=== PATIENT | female | born 1950 | race Caucasian/White ===

== ENCOUNTER 2018-06-18 08:16 | Day surgery (SDC) | payer MEDICARE ==
[~2018-06-18 08:16] MED LIST: Lactated Ringers 1,000 ML IV SCH; Sodium Chloride 0.9% 10 ML Syringe FLUSH PRN
[2018-06-18] MEDS ORDERED: Propofol 200 MG/20 ML SDV IV ONE (10:30)
--- NOTE | 2018-06-18 10:33 | PCM.HPR ---
H & P Addendum review - H & P Addendum Review Date of Original H & P: 06/10/18 Date Reviewed: 06/18/18 Time Reviewed: 10:00 Patient was Examined: No Changes
--- NOTE | 2018-06-18 11:11 | PCM.OPNOTE ---
- General Post-Op/Procedure Note Date of Surgery/Procedure: 06/18/18 Operative Procedure(s): Colonoscopy Findings: Diverticulosis Pre Op Diagnosis: Change in bowel habits Post-Op Diagnosis: Same Anesthesia Technique: MAC Primary Surgeon: Figueroa Viramontes Anesthesia Provider: Tran Mas Complications: None Condition: Good
--- NOTE | 2018-06-18 12:50 | OR ---
DATE OF OPERATION: 06/18/2018 SURGEON: Figueroa Viramontes MD PREOPERATIVE DIAGNOSIS: Change in bowel habits. POSTOPERATIVE DIAGNOSIS: Diverticulosis. PROCEDURE: Colonoscopy. ANESTHESIA: IV sedation. DESCRIPTION OF PROCEDURE: The patient was brought to the procedure room, where she was placed on her left side and IV sedation administered. Digital rectal exam was performed, which was normal. The colonoscope was inserted and advanced to the level of the cecum through a difficult tortuous colon. This required pressure on the abdomen and changing to supine position. Eventually, I was able to reach the cecum, which was confirmed by identifying the appendiceal lumen and ileocecal valve. Prep was good and surfaces were well visualized. Upon withdrawing the scope, the ascending, transverse and descending colons were very tortuous and a few diverticula seen. The sigmoid colon was very tortuous with multiple diverticula present. Rectum was normal and retroflexion was normal. Air was removed, and the scope withdrawn. The patient tolerated the procedure well and returned to Recovery in a stable condition. The patient will follow up with Deja Johnson for further evaluation. In the meantime, I will suggest that she try using MiraLAX daily. /[id number] OMID/CELESTINO
== END 2018-06-18 12:45 | disposition home or self-care (01) ==
LOC: FB.SDS 08:16
PROVIDERS: ATTEND Surgery
DX: K59.00 Constipation, unspecified (principal); K57.30 Diverticulosis of large intestine without perforation or abscess without bleeding; M81.0 Age-related osteoporosis without current pathological fracture; I10 Essential (primary) hypertension; J44.9 Chronic obstructive pulmonary disease, unspecified; K21.9 Gastro-esophageal reflux disease without esophagitis; G25.81 Restless legs syndrome; G43.709 Chronic migraine without aura, not intractable, without status migrainosus; Z88.1 Allergy status to other antibiotic agents; Z88.6 Allergy status to analgesic agent; Z88.8 Allergy status to other drugs, medicaments and biological substances; Z79.82 Long term (current) use of aspirin; Z79.899 Other long term (current) drug therapy
CPT/HCPCS: 00811; 45378; J2704; J7120

== ENCOUNTER 2020-04-20 22:15 | Emergency (ER) | payer MEDICARE ==
--- NOTE | 2020-04-20 22:48 | EDM.PDOC ---
ED HPI GENERAL MEDICAL PROBLEM - General Chief Complaint: Upper Extremity Injury/Pain Stated Complaint: LEFT THUMB AREA CUT AND WRIST Time Seen by Provider: 04/20/20 22:25 Source of Information: Reports: Patient History Limitations: Reports: No Limitations - History of Present Illness INITIAL COMMENTS - FREE TEXT/NARRATIVE: Patient presented to the ED because of left hand bruising and pain. The base of her left thumb got caught on the fan. Left Hand Pain Score (Numeric/FACES): 4 - Related Data Allergies Allergy/AdvReac Type Severity Reaction Status Date / Time metronidazole [From Flagyl] Allergy Mild UNKNOWN Verified 08/30/18 19:54 diclofenac AdvReac Mild UNKNOWN Verified 08/30/18 19:54 paroxetine HCl [From Paxil] AdvReac Mild HEADACHE, Verified 08/30/18 19:54 LETHARGY Home Meds: Home Meds Calcium Carb & Citrate/Vit D3 [Calcium + Vitamin D3 Caplet] 1 tab PO DAILY 06/08/14 [History] FLUoxetine [PROzac] 60 mg PO DAILY 06/08/14 [History] Lisinopril/Hydrochlorothiazide [Zestoretic 20-12.5 mg Tablet] 1 tab PO DAILY 06/08/14 [History] Aspirin [Halfprin] 81 mg PO DAILY 06/14/18 [History] Cholecalciferol (Vitamin D3) [Vitamin D3] 5,000 unit PO DAILY 06/14/18 [History] Denosumab [Xgeva] 60 mg IJ Q6M 06/14/18 [History] Omeprazole 20 mg PO DAILY 06/14/18 [History] Verapamil [Calan SR] 120 mg PO DAILY 06/14/18 [History] Vitamin B Complex 1 each PO DAILY 06/14/18 [History] buPROPion HCL [Wellbutrin Xl] 150 mg PO DAILY 06/14/18 [History] polyethylene glycoL 3350 [MiraLAX] 17 gm PO DAILY 08/30/18 [History] traMADol [Ultram] 100 mg PO Q4H PRN 08/30/18 [History] Past Medical History HEENT History: Reports: None Cardiovascular History: Reports: Hypertension, Other (See Below) Other Cardiovascular History: SUPRAVENTRICULAR PREMATURE BEATS, CHEST PRESSURE Respiratory History: Reports: COPD Gastrointestinal History: Reports: GERD 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: Reports: Other 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: Musculoskeletal History: Reports: Osteoporosis Neurological History: Reports: Headaches, Chronic, Other (See Below) Other Neuro History: PARESTHESIA OF HAND AND FEET Psychiatric History: Reports: Depression - Infectious Disease History Infectious Disease History: Reports: Chicken Pox, Measles, Mumps - Past Surgical History HEENT Surgical History: Reports: None Social & Family History - Family History Family Medical History: Noncontributory - Caffeine Use Caffeine Use: Reports: Coffee Review of Systems - Review of Systems Review Of Systems: See Below Constitutional: Reports: No Symptoms Ears: Reports: No Symptoms Nose: Reports: No Symptoms Mouth/Throat: Reports: No Symptoms Respiratory: Reports: No Symptoms Cardiovascular: Reports: No Symptoms Genitourinary: Reports: No Symptoms Musculoskeletal: Reports: No Symptoms Skin: Reports: Bruising ED EXAM, GENERAL - Physical Exam Exam: See Below Exam Limited By: No Limitations General Appearance: Alert, No Apparent Distress Eye Exam: Bilateral Eye: PERRL Ears: Normal External Exam Nose: Normal Inspection, Normal Mucosa, No Blood Throat/Mouth: Normal Inspection, Normal Lips, Normal Teeth Head: Atraumatic, Normocephalic Neck: Normal Inspection, Supple, Non-Tender, Full Range of Motion Respiratory/Chest: No Respiratory Distress, Lungs Clear, Normal Breath Sounds Cardiovascular: Normal Peripheral Pulses, Regular Rate, Rhythm, No Edema, No Gallop, No JVD, No Murmur GI/Abdominal: Normal Bowel Sounds, Soft, Non-Tender, No Organomegaly Back Exam: Normal Inspection, Full Range of Motion Extremities: Normal Inspection, Normal Range of Motion, Other (bruising and mild swelling base of left thum) Course - Vital Signs Text/Narrative:: ROXANA wrap applied by ED physician Last Recorded V/S: Last Vital Signs Temp 36.5 C 04/20/20 22:20 Pulse 73 04/20/20 22:20 Resp 16 04/20/20 22:20 BP 145/72 H 04/20/20 22:20 Pulse Ox 97 04/20/20 22:20 Departure - Departure Time of Disposition: 22:50 Disposition: Home, Self-Care 01 Condition: Good Clinical Impression: Contusion - Discharge Information Instructions: Contusion, [id number] Referrals: Deja Johnson NP [Primary Care Provider] - Forms: ED Department Discharge Additional Instructions: please read discharge instuctions on contusion apply ice you may take ibuprofen 600 mg with tylenol 500 mg every 4-6 hours as needed for pain follow up as needed Sepsis Event Note (ED) - Focused Exam Vital Signs: Vital Signs Temp Pulse Resp BP Pulse Ox 04/20/20 22:20 36.5 C 73 16 145/72 H 97
== END 2020-04-20 22:45 | disposition home or self-care (01) ==
LOC: FB.ED 22:15
DX: S60.222A Contusion of left hand, initial encounter (principal); I10 Essential (primary) hypertension; K21.9 Gastro-esophageal reflux disease without esophagitis; F32.9 Major depressive disorder, single episode, unspecified; Z88.8 Allergy status to other drugs, medicaments and biological substances; Z79.899 Other long term (current) drug therapy; Z79.82 Long term (current) use of aspirin; W23.0XXA Caught, crushed, jammed, or pinched between moving objects, initial encounter
CPT/HCPCS: 99282; 99283

== ENCOUNTER 2020-12-04 18:19 | Emergency (ER) | payer MEDICARE ==
[2020-12-04] MEDS ORDERED: Morphine 10 MG/ML SDV IM ONE (19:25)
[2020-12-04] MEDS ORDERED: hydrOXYzine HCl 50 MG/ML SDV IM ONE (19:25)
--- NOTE | 2020-12-04 20:28 | EDM.PDOC ---
ED HPI GENERAL MEDICAL PROBLEM - General Chief Complaint: Upper Extremity Injury/Pain Stated Complaint: FALL Time Seen by Provider: 12/04/20 20:25 Source of Information: Reports: Patient, Family History Limitations: Reports: No Limitations - History of Present Illness INITIAL COMMENTS - FREE TEXT/NARRATIVE: Lyn fell while trying to put up some pictures.She landed on her left elbow. Hit the head w/o LOC. She has a deformity of the left elbow. She is from [facility] No vomiting. left elbow Pain Score (Numeric/FACES): 10 - Related Data Allergies Allergy/AdvReac Type Severity Reaction Status Date / Time metronidazole [From Flagyl] Allergy Mild UNKNOWN Verified 12/04/20 19:22 diclofenac AdvReac Mild UNKNOWN Verified 12/04/20 19:22 paroxetine HCl [From Paxil] AdvReac Mild HEADACHE, Verified 12/04/20 19:22 LETHARGY Home Meds: Home Meds Calcium Carb & Citrate/Vit D3 [Calcium + Vitamin D3 Caplet] 1 tab PO DAILY 06/08/14 [History] FLUoxetine [PROzac] 60 mg PO DAILY 06/08/14 [History] Lisinopril/Hydrochlorothiazide [Zestoretic 20-12.5 mg Tablet] 1 tab PO DAILY [History] Aspirin [Halfprin] 81 mg PO DAILY 06/14/18 [History] Cholecalciferol (Vitamin D3) [Vitamin D3] 5,000 unit PO DAILY 06/14/18 [History] Denosumab [Xgeva] 60 mg IJ Q6M 06/14/18 [History] Omeprazole 20 mg PO DAILY 06/14/18 [History] Verapamil [Calan SR] 120 mg PO DAILY 06/14/18 [History] Vitamin B Complex 1 each PO DAILY 06/14/18 [History] buPROPion HCL [Wellbutrin Xl] 150 mg PO DAILY 06/14/18 [History] polyethylene glycoL 3350 [MiraLAX] 17 gm PO DAILY 08/30/18 [History] traMADol [Ultram] 100 mg PO Q4H PRN 08/30/18 [History] Past Medical History HEENT History: Reports: None Cardiovascular History: Reports: Hypertension, Other (See Below) Other Cardiovascular History: SUPRAVENTRICULAR PREMATURE BEATS, CHEST PRESSURE Respiratory History: Reports: COPD Gastrointestinal History: Reports: GERD 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: Musculoskeletal History: Reports: Osteoporosis Neurological History: Reports: Headaches, Chronic, Other (See Below) Other Neuro History: PARESTHESIA OF HAND AND FEET Psychiatric History: Reports: Depression - Infectious Disease History Infectious Disease History: Reports: Chicken Pox, Measles, Mumps - Past Surgical History HEENT Surgical History: Reports: None Other HEENT Surgeries/Procedures: bilat cataract GI Surgical History: Reports: Appendectomy, Cholecystectomy, Colonoscopy Social & Family History - Family History Family Medical History: No Pertinent Family History - Tobacco Use Tobacco Use Status *Q: Current Every Day Tobacco User Years of Tobacco use: 58 Packs/Tins Daily: 0.3 - Caffeine Use Caffeine Use: Reports: Coffee, Energy Drinks, Tea - Recreational Drug Use Recreational Drug Use: No Review of Systems - Review of Systems Review Of Systems: Comprehensive ROS is negative, except as noted in HPI. ED EXAM, GENERAL - Physical Exam Exam: See Below Exam Limited By: No Limitations General Appearance: Alert, WD/WN Ears: Normal External Exam Ear Exam: Bilateral Ear: Auricle Normal, Canal Normal, TM normal Nose: Normal Inspection Throat/Mouth: Normal Inspection Head: Atraumatic Respiratory/Chest: No Respiratory Distress Extremities: Other (Left elbow deformity,limited ROM and normal peripheral pulses) Course - Vital Signs Last Recorded V/S: Last Vital Signs Temp 97.4 F 12/04/20 18:20 Pulse 75 12/04/20 18:20 Resp 17 12/04/20 18:20 BP 139/111 H 12/04/20 18:20 Pulse Ox 99 12/04/20 18:20 - Orders/Labs/Meds Orders: Active Orders 24 hr Category Date Time Status Elbow 2V Lt [CR] Stat Exams 12/04/20 19:03 Taken Head wo Cont [CT] Stat Exams 12/04/20 20:35 Taken Meds: Medications Discontinued Medications Generic Name Dose Route Start Last Admin Trade Name Freq PRN Reason Stop Dose Admin Hydroxyzine HCl 50 mg 12/04/20 19:25 12/04/20 19:43 Vistaril IM 12/04/20 19:26 50 mg ONETIME ONE Administration Morphine Sulfate 10 mg 12/04/20 19:25 12/04/20 19:43 Morphine IM 12/04/20 19:26 10 mg ONETIME ONE Administration Departure - Departure Time of Disposition: 21:09 Disposition: DC/Tfer to Acute Hospital 02 Clinical Impression: Olecranon fracture - Discharge Information Referrals: Deja Johnson MEDICAL CHIEF TECHNICIAN [Primary Care Provider] - Forms: ED Department Discharge Sepsis Event Note (ED) - Evaluation Sepsis Screening Result: No Definite Risk - Focused Exam Vital Signs: Vital Signs Temp Pulse Resp BP Pulse Ox 12/04/20 18:20 97.4 F 75 17 139/111 H 99 - Problem List & Annotations (1) Olecranon fracture SNOMED Code(s): 392137436 Code(s): S52.023A - DISP FX OF OLECRAN PRO W/O INTARTIC EXTN UNSP ULNA, INIT Status: Acute Current Visit: Yes Qualifiers: Encounter type: initial encounter Fracture type: closed Laterality: left Qualified Code(s): S52.022A - Displaced fracture of olecranon process without intraarticular extension of left ulna, initial encounter for closed fracture - Problem List Review Problem List Initiated/Reviewed/Updated: Yes - My Orders Last 24 Hours: My Active Orders 12/04/20 20:35 Head wo Cont [CT] Stat - Assessment/Plan Last 24 Hours: My Active Orders 12/04/20 20:35 Head wo Cont [CT] Stat Plan: Morphine and Vistaril. Elbow sling. I spoke with Ortho at [facility]. Admit there tonight for ORIF tomorrow. Transferred by Ambulance
--- NOTE | 2020-12-06 11:39 | CR ---
INDICATION: Left arm injury. LEFT ELBOW: Frontal and lateral views of the left elbow revealed a transverse fracture through the olecranon process with separation of the fracture fragments along the posterior aspect of approximately 24 mm. Joint effusion is noted. Overlying soft tissue swelling is noted. Bone density appeared to be normal. IMPRESSION: Ulnar fracture through the olecranon process with severe separation of fracture fragments. MTDD
== END 2020-12-04 21:38 ==
LOC: FB.ED 18:19
DX: S52.022A Displaced fracture of olecranon process without intraarticular extension of left ulna, initial encounter for closed fracture (principal); I10 Essential (primary) hypertension; J44.9 Chronic obstructive pulmonary disease, unspecified; K21.9 Gastro-esophageal reflux disease without esophagitis; Z72.0 Tobacco use; Z88.8 Allergy status to other drugs, medicaments and biological substances; Z79.82 Long term (current) use of aspirin; Z79.899 Other long term (current) drug therapy; W18.30XA Fall on same level, unspecified, initial encounter
CPT/HCPCS: 70450; 73070-LT; 96372; 99284; 99284-25; J2270; J3410

== ENCOUNTER 2021-01-02 18:42 | Observation (INO) | payer MEDICARE ==
[2021-01-02] MEDS ORDERED: Sodium Chloride 0.9% 10 ML Syringe FLUSH PRN (18:54)
[2021-01-02] MEDS ORDERED: Acetaminophen 500 MG Tab PO ONE (19:45)
[2021-01-02] MEDS ORDERED: Sodium Chloride 0.9% 500 ML IV ONE (19:45)
[2021-01-02] MEDS: Sodium Chloride 0.9% 1,000 ML IV SCH (20:27)
--- NOTE | 2021-01-02 20:31 | EDM.PDOC ---
ED HPI GENERAL MEDICAL PROBLEM - General Chief Complaint: Fever Stated Complaint: SOB Time Seen by Provider: 01/02/21 19:15 Source of Information: Reports: Patient, Family (Patient's daughter) History Limitations: Reports: No Limitations - History of Present Illness INITIAL COMMENTS - FREE TEXT/NARRATIVE: 70-year-old female who presents to the emergency department via private vehicle by her daughter secondary to reports of shortness of breath which began at about 9:30 to 10 AM today. She tells me that she felt well yesterday until last night when she had some malaise but she really did not have any pain of breath at that time. She also did not notice any fever but only reports that she felt "bad all over". She reports that she was coming back in from smoking a cigarette at about 9:30 to 10 AM today when she felt the shortness of breath. She reports that she also felt like her heart was beating fast and she felt bad all over at that time as well. The symptoms have persisted through the day. The personnel at [facility] did check the patient and she had a somewhat fast heart rate but seemed to be doing okay otherwise. She also has been eating and drinking normally although she tells me that she feels rather thirsty right now. She has some generalized weakness and shortness of breath and malaise has persisted all through the day and seemed to worsen. Upon arrival here she was noted to have a fever of 102F. Her O2 saturations were 92% on room air and she did seem to be somewhat dyspneic. The patient does report that she has had a cough for the past few days but it has been nonproductive. She also reports she has a headache now which is a global headache and it is pounding and throbbing and she rates that pain as an 8/10. She does not have pain elsewhere. She has had no nausea or vomiting. She has had no dysuria or hematuria. She is approximately one month status post ORIF of her left elbow. That area is doing well and she is out of her brace and the incision site is without any erythema or swelling. There are no other associated signs or symptoms. There are no other modifying factors. Onset: Other (Yesterday evening) Duration: Getting Worse Location: Reports: Head, Generalized Quality: Reports: Ache Severity: Moderate Improves with: Reports: None Worsens with: Reports: Other (Activity makes her shortness of breath worse.) Context: Reports: Other Associated Symptoms: Reports: Cough, Shortness of Breath, Weakness Treatments PHYSICAL BIOCHEMIST: Reports: Acetaminophen (Last dose was this previous morning.) - Related Data Allergies Allergy/AdvReac Type Severity Reaction Status Date / Time metronidazole [From Flagyl] Allergy Mild UNKNOWN Verified 01/02/21 18:54 diclofenac AdvReac Mild UNKNOWN Verified 01/02/21 18:54 paroxetine HCl [From Paxil] AdvReac Mild HEADACHE, Verified 01/02/21 18:54 LETHARGY Home Meds: Home Meds Aspirin [Halfprin] 81 mg PO DAILY 06/14/18 [History] Cholecalciferol (Vitamin D3) [Vitamin D3] 5,000 unit PO DAILY 06/14/18 [History] Omeprazole 20 mg PO DAILY 06/14/18 [History] Verapamil [Calan SR] 120 mg PO DAILY 06/14/18 [History] Calcium Carb/Vit D3/Minerals [Calcium 600+D Plus Minerals] 1 each PO DAILY 01/02/21 [History] Docusate Sodium [Colace] 100 mg PO DAILY 01/02/21 [History] Ferrous Sulfate 325 mg PO DAILY 01/02/21 [History] Mecobalamin [B12 Active] 1,000 mcg PO DAILY 01/02/21 [History] Mirtazapine [Remeron] 30 mg PO BEDTIME 01/02/21 [History] OLANZapine [Zyprexa] 5 mg PO DAILY 01/02/21 [History] Vit E/Zn/Lut/Lyco/Bilber/Hb261 [Lipotriad Vision Support Plus] 1 each PO DAILY 01/02/21 [History] lisinopriL [Lisinopril] 5 mg PO DAILY 01/02/21 [History] Past Medical History Cardiovascular History: Reports: Hypertension Respiratory History: Reports: COPD Gastrointestinal History: Reports: GERD 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 She apparently did have some sundowning with her last admission one month ago at [facility] Depression - Infectious Disease History Infectious Disease History: Reports: Chicken Pox, Measles, Mumps - Past Surgical History Other HEENT Surgeries/Procedures: bilat cataract GI Surgical History: Reports: Appendectomy, Cholecystectomy, Colonoscopy Female Surgical History: Reports: Hysterectomy, Tubal Ligation Musculoskeletal Surgical History: Reports: ORIF (Of left olecranon), Shoulder Surgery (Right shoulder surgery) Social & Family History - Tobacco Use Tobacco Use Status *Q: Current Every Day Tobacco User Years of Tobacco use: 40 Packs/Tins Daily: 0.2 - Caffeine Use Caffeine Use: Reports: Coffee - Alcohol Use Alcohol Use History: No - Recreational Drug Use Recreational Drug Use: No - Living Situation & Occupation Living situation: Reports: Extended Care Facility (Lives at [facility]) Occupation: Retired Social History Comment: I did discuss with the patient her CODE STATUS and she has informed me that she wishes to be a DNR DNI. ED ROS GENERAL - Review of Systems Review Of Systems: See Below Constitutional: Reports: Malaise, Weakness, Fatigue HEENT: Reports: No Symptoms, Other (No loss of taste or smell.) Respiratory: Reports: Shortness of Breath, Cough. Denies: Sputum Cardiovascular: Reports: Palpitations GI/Abdominal: Reports: No Symptoms : Reports: No Symptoms Musculoskeletal: Reports: No Symptoms Skin: Reports: No Symptoms Neurological: Reports: Headache, Weakness Psychiatric: Reports: No Symptoms Hematologic/Lymphatic: Reports: No Symptoms Immunologic: Reports: No Symptoms ED EXAM, GENERAL - Physical Exam Exam: See Below Exam Limited By: No Limitations General Appearance: Alert, WD/WN, Mild Distress Eye Exam: Bilateral Eye: EOMI, Normal Inspection Ears: Normal External Exam, Hearing Grossly Normal Ear Exam: Bilateral Ear: Auricle Normal Nose: Normal Inspection, Normal Mucosa, No Blood Throat/Mouth: Normal Voice, No Airway Compromise, Other (Dry mouth.) Head: Atraumatic, Normocephalic Neck: Normal Inspection, Supple, Non-Tender, Full Range of Motion Respiratory/Chest: No Respiratory Distress, No Accessory Muscle Use, Chest Non- Tender, Rales (In right base), Wheezing (Scattered bilaterally) Cardiovascular: Normal Peripheral Pulses, Regular Rate, Rhythm, No Murmur Peripheral Pulses: 2+: Radial (L), Radial (R), Dorsalis Pedis (L), Dorsalis Pedis (R) GI/Abdominal: Normal Bowel Sounds, Soft, Non-Tender, No Mass Back Exam: Normal Inspection, Full Range of Motion Extremities: Normal Inspection, Normal Range of Motion, Non-Tender, No Pedal Edema, Normal Capillary Refill, Other (Operative site an incision on her left elbow looks good without any erythema or swelling.) Neurological: Alert, Oriented, CN II-XII Intact, Normal Cognition, No Motor/Sensory Deficits Skin Exam: Warm, Dry, Intact, Normal Color, No Rash #1 Interpretation EKG Date: 01/02/21 Time: 19:44 Rhythm: NSR Rate (Beats/Min): 92 [place]: Normal P-Wave: Present QRS: Normal ST-T: Normal QT: Normal Comparison: NA - No Prior EKG EKG Interpretation Comments: This is a normal EKG. Course - Vital Signs Last Recorded V/S: Last Vital Signs Temp 36.8 C 01/02/21 21:33 Pulse 88 01/02/21 21:33 Resp 16 01/02/21 21:33 BP 161/89 H 01/02/21 21:33 Pulse Ox 95 01/02/21 21:33 - Orders/Labs/Meds Orders: Active Orders 24 hr Category Date Time Status Admission Status [Patient Status] [ADT] Routine ADT 01/02/21 22:32 Ordered EKG Documentation Completion [RC] ASDIRECTED Care 01/02/21 18:56 Active Ang Chest [CT] Stat Exams 01/02/21 20:25 Taken Chest 1V Frontal [CR] Stat Exams 01/02/21 18:54 Stop Req CULTURE BLOOD [BC] Urgent Lab 01/02/21 19:08 Received CULTURE BLOOD [BC] Urgent Lab 01/02/21 19:15 Received Sodium Chloride 0.9% [Normal Saline] 1,000 ml Med 01/02/21 19:45 Active IV ASDIRECTED Sodium Chloride 0.9% [Saline Flush] Med 01/02/21 18:54 Active 10 ml FLUSH ASDIRECTED PRN Blood Culture x2 Reflex Set [OM.PC] Urgent Oth 01/02/21 18:54 Ordered Peripheral IV Insertion Adult [OM.PC] Routine Oth 01/02/21 18:54 Ordered EKG 12 Lead [EK] Routine Ther 01/02/21 18:54 Ordered Medication Orders Sodium Chloride (Normal Saline) 1,000 mls @ 100 mls/hr IV ASDIRECTED [facility] Last Admin: 01/02/21 20:27 Dose: 100 mls/hr Documented by: SKY Sodium Chloride (Sodium Chloride 0.9% 10 Ml Syringe) 10 ml FLUSH ASDIRECTED PRN PRN Reason: Keep Vein Open Last Admin: 01/02/21 19:50 Dose: 10 ml Documented by: SKY Labs: Laboratory Tests 01/02/21 01/02/21 01/02/21 Range/Units 19:08 19:08 19:08 WBC 12.2 H (3.0-10.3) x10-3/uL RBC 3.34 L (3.60-5.20) x10(6)uL Hgb 10.6 L (11.4-15.5) g/dL Hct 32.9 L (34.2-48.2) % MCV 98.6 (76.7-100.5) fL MCH 31.8 (23.9-33.9) pg MCHC 32.3 (31.9-34.8) g/dL RDW 14.1 (12.3-16.5) % Plt Count 334 (151-488) x10(3)uL MPV 7.4 (7.1-12.4) fL Neut % (Auto) 64.4 (30.8-76.2) % Lymph % (Auto) 10.6 L (18.4-52.1) % [place] % (Auto) 12.8 (4.4-15.7) % Eos % (Auto) 11.4 H (0.6-8.1) % Baso % (Auto) 0.8 (0.2-1.5) % Neut # (Auto) 7.9 H (1.5-6.3) x10-3/uL Lymph # (Auto) 1.3 (1.0-4.4) x10-3/uL [place] # (Auto) 1.6 H (0.3-1.0) x10-3/uL Eos # (Auto) 1.4 H (0.0-0.8) x10-3/uL Baso # (Auto) 0.1 (0.0-0.1) x10-3/uL D-Dimer, Quantitative (0.0-0.59) mg/LFEU Sodium 140 (135-145) mmol/L Potassium 4.1 (3.5-5.3) mmol/L Chloride 103 (100-110) mmol/L Carbon Dioxide 28 (21-32) mmol/L BUN 16 (7-18) mg/dL Creatinine 0.9 (0.55-1.02) mg/dL Est Cr Clr Drug Dosing 47.21 mL/min Estimated GFR (MDRD) > 60 (>60) BUN/Creatinine Ratio 17.8 (9-20) Glucose 112 (80-116) mg/dL Lactic Acid (0.4-2.0) mmol/L Calcium 8.5 L (8.6-10.2) mg/dL Magnesium 2.0 (1.8-2.5) mg/dL Total Bilirubin 0.3 (0.1-1.3) mg/dL AST 19 (5-25) IU/L ALT 21 (12-36) U/L Alkaline Phosphatase 115 H (56-112) IU/L Troponin I 5.7 (4.0-60.3) pg/mL C-Reactive Protein 7.1 H* (0.5-0.9) mg/dL NT-Pro-B Natriuret Pep 264 H (<=125) pg/mL Total Protein 6.4 (6.0-8.0) g/dL Albumin 3.0 L (3.2-4.6) g/dL Globulin 3.4 g/dL Albumin/Globulin Ratio 0.9 Urine Color (YELLOW) Urine Appearance (CLEAR) Urine pH (5.0-6.5) Ur Specific [place] (1.010-1.025) Urine Protein (NEGATIVE) mg/dL Urine Glucose (UA) (NORMAL) mg/dL Urine Ketones (NEGATIVE) mg/dL Urine Occult Blood (NEGATIVE) Urine Nitrite (NEGATIVE) Urine Bilirubin (NEGATIVE) Urine Urobilinogen (NEGATIVE) mg/dL Ur Leukocyte Esterase (NEGATIVE) Urine RBC (0-5) Urine WBC (0-5) Ur Squamous Epith Cells (NS,R,O) Urine Bacteria (NS) SARS-CoV-2 RNA (TRISHA) (NEGATIVE) 01/02/21 01/02/21 01/02/21 Range/Units 19:08 19:08 19:50 WBC (3.0-10.3) x10-3/uL RBC (3.60-5.20) x10(6)uL Hgb (11.4-15.5) g/dL Hct (34.2-48.2) % MCV (76.7-100.5) fL MCH (23.9-33.9) pg MCHC (31.9-34.8) g/dL RDW (12.3-16.5) % Plt Count (151-488) x10(3)uL MPV (7.1-12.4) fL Neut % (Auto) (30.8-76.2) % Lymph % (Auto) (18.4-52.1) % [place] % (Auto) (4.4-15.7) % Eos % (Auto) (0.6-8.1) % Baso % (Auto) (0.2-1.5) % Neut # (Auto) (1.5-6.3) x10-3/uL Lymph # (Auto) (1.0-4.4) x10-3/uL [place] # (Auto) (0.3-1.0) x10-3/uL Eos # (Auto) (0.0-0.8) x10-3/uL Baso # (Auto) (0.0-0.1) x10-3/uL D-Dimer, Quantitative 2.46 H (0.0-0.59) mg/LFEU Sodium (135-145) mmol/L Potassium (3.5-5.3) mmol/L Chloride (100-110) mmol/L Carbon Dioxide (21-32) mmol/L BUN (7-18) mg/dL Creatinine (0.55-1.02) mg/dL Est Cr Clr Drug Dosing mL/min Estimated GFR (MDRD) (>60) BUN/Creatinine Ratio (9-20) Glucose (80-116) mg/dL Lactic Acid 1.0 (0.4-2.0) mmol/L Calcium (8.6-10.2) mg/dL Magnesium (1.8-2.5) mg/dL Total Bilirubin (0.1-1.3) mg/dL AST (5-25) IU/L ALT (12-36) U/L Alkaline Phosphatase (56-112) IU/L Troponin I (4.0-60.3) pg/mL C-Reactive Protein (0.5-0.9) mg/dL NT-Pro-B Natriuret Pep (<=125) pg/mL Total Protein (6.0-8.0) g/dL Albumin (3.2-4.6) g/dL Globulin g/dL Albumin/Globulin Ratio Urine Color Yellow (YELLOW) Urine Appearance Slightly cloudy (CLEAR) Urine pH 7.0 H (5.0-6.5) Ur Specific [place] 1.010 (1.010-1.025) Urine Protein Negative (NEGATIVE) mg/dL Urine Glucose (UA) Normal (NORMAL) mg/dL Urine Ketones Negative (NEGATIVE) mg/dL Urine Occult Blood Negative (NEGATIVE) Urine Nitrite Negative (NEGATIVE) Urine Bilirubin Negative (NEGATIVE) Urine Urobilinogen Normal (NEGATIVE) mg/dL Ur Leukocyte Esterase Small H (NEGATIVE) Urine RBC 0-5 (0-5) Urine WBC 5-10 H (0-5) Ur Squamous Epith Cells Moderate H (NS,R,O) Urine Bacteria Few H (NS) SARS-CoV-2 RNA (TRISHA) (NEGATIVE) 01/02/21 Range/Units 19:55 WBC (3.0-10.3) x10-3/uL RBC (3.60-5.20) x10(6)uL Hgb (11.4-15.5) g/dL Hct (34.2-48.2) % MCV (76.7-100.5) fL MCH (23.9-33.9) pg MCHC (31.9-34.8) g/dL RDW (12.3-16.5) % Plt Count (151-488) x10(3)uL MPV (7.1-12.4) fL Neut % (Auto) (30.8-76.2) % Lymph % (Auto) (18.4-52.1) % [place] % (Auto) (4.4-15.7) % Eos % (Auto) (0.6-8.1) % Baso % (Auto) (0.2-1.5) % Neut # (Auto) (1.5-6.3) x10-3/uL Lymph # (Auto) (1.0-4.4) x10-3/uL [place] # (Auto) (0.3-1.0) x10-3/uL Eos # (Auto) (0.0-0.8) x10-3/uL Baso # (Auto) (0.0-0.1) x10-3/uL D-Dimer, Quantitative (0.0-0.59) mg/LFEU Sodium (135-145) mmol/L Potassium (3.5-5.3) mmol/L Chloride (100-110) mmol/L Carbon Dioxide (21-32) mmol/L BUN (7-18) mg/dL Creatinine (0.55-1.02) mg/dL Est Cr Clr Drug Dosing mL/min Estimated GFR (MDRD) (>60) BUN/Creatinine Ratio (9-20) Glucose (80-116) mg/dL Lactic Acid (0.4-2.0) mmol/L Calcium (8.6-10.2) mg/dL Magnesium (1.8-2.5) mg/dL Total Bilirubin (0.1-1.3) mg/dL AST (5-25) IU/L ALT (12-36) U/L Alkaline Phosphatase (56-112) IU/L Troponin I (4.0-60.3) pg/mL C-Reactive Protein (0.5-0.9) mg/dL NT-Pro-B Natriuret Pep (<=125) pg/mL Total Protein (6.0-8.0) g/dL Albumin (3.2-4.6) g/dL Globulin g/dL Albumin/Globulin Ratio Urine Color (YELLOW) Urine Appearance (CLEAR) Urine pH (5.0-6.5) Ur Specific [place] (1.010-1.025) Urine Protein (NEGATIVE) mg/dL Urine Glucose (UA) (NORMAL) mg/dL Urine Ketones (NEGATIVE) mg/dL Urine Occult Blood (NEGATIVE) Urine Nitrite (NEGATIVE) Urine Bilirubin (NEGATIVE) Urine Urobilinogen (NEGATIVE) mg/dL Ur Leukocyte Esterase (NEGATIVE) Urine RBC (0-5) Urine WBC (0-5) Ur Squamous Epith Cells (NS,R,O) Urine Bacteria (NS) SARS-CoV-2 RNA (TRISHA) Negative (NEGATIVE) Meds: Medications Generic Name Dose Route Start Last Admin Trade Name Freq PRN Reason Stop Dose Admin Sodium Chloride 1,000 mls @ 100 mls/hr 01/02/21 19:45 01/02/21 20:27 Normal Saline IV 100 mls/hr ASDIRECTED OTILIA Administration Sodium Chloride 10 ml 01/02/21 18:54 01/02/21 19:50 Sodium Chloride 0.9% 10 Ml Syringe FLUSH 10 ml ASDIRECTED PRN Administration Keep Vein Open Discontinued Medications Generic Name Dose Route Start Last Admin Trade Name Arnavq PRN Reason Stop Dose Admin Acetaminophen 1,000 mg 01/02/21 19:45 01/02/21 19:51 Acetaminophen 500 Mg Tab PO 01/02/21 19:46 1,000 mg ONETIME ONE Administration Sodium Chloride 500 mls @ 999 mls/hr 01/02/21 19:45 01/02/21 19:51 Normal Saline IV 01/02/21 20:15 999 mls/hr .BOLUS ONE Administration Iopamidol 75 ml 01/02/21 20:59 01/02/21 21:19 Iopamidol 755 Mg/Ml 75 Ml Bottle IV 01/02/21 21:00 75 ml ONETIME ONE Administration - Radiology Interpretation Free Text/Narrative:: CTA of the chest showed no evidence of pulmonary emboli. There was centrilobular emphysema with bronchial wall thickening suggesting bronchitis. There was a 2 mm right upper lobe pulmonary nodule that will require follow-up chest CT in 12 months. This was per the [facility] radiologist. - Re-Assessments/Exams Free Text/Narrative Re-Assessment/Exam: 01/02/21 20:15: Patient remains awake and alert. She remains hemodynamically and respiratory stable. Her d-dimer was 2.54. I am awaiting her rapid COVID test. I had initially ordered a portable chest x-ray but I will cancel that and plan on doing a CTA of her chest because she will need to be evaluated for possible PE. The patient is receiving normal saline 500 mL a bolus. 01/02/21 21:00: The rapid COVID is negative. The patient will now be going over for the CTA of her chest. She has remained hemodynamically and neurologically stable. 01/02/21 22:15: The CT of the patient's chest showed no evidence of PE. There was no definite pneumonia but there was COPD with bronchial wall thickening representing a probable infectious process. The patient has remained hemodynamically and neurologically stable. Her fever has defervesced. She still feels short of breath with activity. She still has some scattered rhonchi/wheezing and rales in her right base. I think the patient would be best served from being admitted with IV antibiotics, DuoNeb treatments and Solu- Medrol IV. At this point, I am unsure if the patient will require a greater then 2 midnight hospital stay. I will therefore place the patient on observation status pending review by Dr. Lopez when she since care the patient at 7 AM on 01/03/2021. Discussed this with the patient and with her daughter and they are in agreement with this plan. Departure - Departure Time of Disposition: 22:35 Disposition: Refer to Observation Condition: Fair (Stable) Clinical Impression: COPD with acute exacerbation, Respiratory distress, Febrile illness, acute UTI (urinary tract infection) Qualifiers: Urinary tract infection type: site unspecified Hematuria presence: without hematuria Qualified Code(s): N39.0 - Urinary tract infection, site not specified - Discharge Information Referrals: PCP,None [Primary Care Provider] - Forms: ED Department Discharge Sepsis Event Note (ED) - Evaluation Sepsis Screening Result: Possible Sepsis Risk - Focused Exam Vital Signs: Vital Signs Temp Pulse Resp BP Pulse Ox 01/02/21 21:33 36.8 C 88 16 161/89 H 95 01/02/21 20:10 92 16 170/91 H 95 01/02/21 19:30 96 16 149/89 H 96 01/02/21 19:15 95 20 162/90 H 96 01/02/21 18:50 39.1 C H 95 18 164/94 H 92 L - My Orders Last 24 Hours: My Active Orders 01/02/21 18:54 Chest 1V Frontal [CR] Stat Sodium Chloride 0.9% [Saline Flush] 10 ml FLUSH ASDIRECTED PRN Blood Culture x2 Reflex Set [OM.PC] Urgent Peripheral IV Insertion Adult [OM.PC] Routine EKG 12 Lead [EK] Routine 01/02/21 18:56 EKG Documentation Completion [RC] ASDIRECTED 01/02/21 19:08 CULTURE BLOOD [BC] Urgent 01/02/21 19:15 CULTURE BLOOD [BC] Urgent 01/02/21 19:45 Sodium Chloride 0.9% [Normal Saline] 1,000 ml IV ASDIRECTED 01/02/21 20:25 Ang Chest [CT] Stat 01/02/21 22:32 Admission Status [Patient Status] [ADT] Routine - Assessment/Plan Last 24 Hours: My Active Orders 01/02/21 18:54 Chest 1V Frontal [CR] Stat Sodium Chloride 0.9% [Saline Flush] 10 ml FLUSH ASDIRECTED PRN Blood Culture x2 Reflex Set [OM.PC] Urgent Peripheral IV Insertion Adult [OM.PC] Routine EKG 12 Lead [EK] Routine 01/02/21 18:56 EKG Documentation Completion [RC] ASDIRECTED 01/02/21 19:08 CULTURE BLOOD [BC] Urgent 01/02/21 19:15 CULTURE BLOOD [BC] Urgent 01/02/21 19:45 Sodium Chloride 0.9% [Normal Saline] 1,000 ml IV ASDIRECTED 01/02/21 20:25 Ang Chest [CT] Stat 01/02/21 22:32 Admission Status [Patient Status] [ADT] Routine
[2021-01-02] MEDS ORDERED: Iopamidol 755 Mg/ML 75 ML Bottle IV ONE (20:59)
[2021-01-02] MEDS ORDERED: Ondansetron 4 MG/2 ML SDV IV PRN (22:36)
[2021-01-02] MEDS ORDERED: Ondansetron 4 MG Tab.DIS PO PRN (22:36)
[2021-01-02] MEDS ORDERED: Nicotine 14 MG/24 Hr Patch TRDERM SCH (22:45)
[2021-01-02] MEDS ORDERED: Azithromycin 500 MG in Sodium Chloride 0.9% 250 ML IV SCH (22:45)
[2021-01-02] MEDS ORDERED: cefTRIAXone 1 GM Vial IVPUSH SCH (22:45)
[2021-01-02] MEDS ORDERED: Enoxaparin 40 MG/0.4 ML Syringe SUBCUT SCH (22:45)
[2021-01-02] MEDS: Albuterol/Ipratropium 3.0-0.5 MG/3 ML Neb Soln NEB SCH (22:59)
[2021-01-02] MEDS ORDERED: Albuterol/Ipratropium 3.0-0.5 MG/3 ML Neb Soln NEB ONE (23:09)
[2021-01-02] MEDS: Pantoprazole 40 MG Vial IVPUSH SCH (23:37)
[2021-01-02] MEDS: methylPREDNISolone Sodium Succinate 40 MG/1 ML SDV IVPUSH SCH (23:38)
[2021-01-03] MEDS: Acetaminophen 325 MG Tab PO PRN ×3 (00:01→11:12)
[2021-01-03] MEDS: Albuterol/Ipratropium 3.0-0.5 MG/3 ML Neb Soln NEB SCH ×2 (06:01→10:52)
[2021-01-03] MEDS: methylPREDNISolone Sodium Succinate 40 MG/1 ML SDV IVPUSH SCH (06:01)
[2021-01-03] MEDS: Sodium Chloride 0.9% 1,000 ML IV SCH (06:59)
[2021-01-03] MEDS: Pantoprazole 40 MG Vial IVPUSH SCH (09:01)
[2021-01-03] MEDS ORDERED: Verapamil 120 MG Tab.ER *PTOM PO SCH (10:30)
[2021-01-03] MEDS ORDERED: Trolamine Salicylate/Aloe Vera 10% Crm 85 GM Tube TOP PRN (11:37)
--- NOTE | 2021-01-03 11:59 | PCM.HP.2 ---
H&P History of Present Illness - General Date of Service: 01/03/21 Admit Problem/Dx: COPD exacerbation/acute bronchitis Source of Information: Patient, EMS Notes Reviewed - History of Present Illness Initial Comments - Free Text/Narative: Lyn developed shortness of breath, malaise, dry cough and weakness yesterday morning, presented to ER later yesterday, found to have temp 102F, malaise, headache. She had tachycardia, stated that she was drinking and eating normally. She had oxygen saturation of 92% on presentation. No dysuria, frequency or hematuria. Does have some urgency. No rash. She has history of COPD per her d aughter but has not been on any inhalers for it. Lyn reports she thinks she had PFTs in the distant past and that her primary provider, Deja Johnson NP had discussed repeating them when she fractured her elbow last month, everything had been put on hold. She is not on oxygen at home. She just got out of her elbow brace within the past week. State her left shoulder is bothering her and asked for some topical pain cream for it. In ER had elevated D dimer 2.46. On CTA,found to have bronchial wall thickening, negative for pulmonary embolism(PE). WBC was 12.2, BNP 264, Alkaline phosphatase was 115. Troponin normal. EKG normal. CRP 7.1. She does have right upper lobe nodule, advised to repeat CT in 12 months to follow nodule. WBC today was 8.1. Covid was negative. UA showed small leukocyte esterase, 5-10 wbc, moderate epithelials, few bacteria: most likely contamination or dehydration. Urine culture pending, no symptoms. 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 She does have history of Dementia, on Memantine 5 mg bid. She lives at [facility] Headache Pain Score (Numeric/FACES): 5 - Related Data Allergies/Adverse Reactions: Allergies Allergy/AdvReac Type Severity Reaction Status Date / Time metronidazole [From Flagyl] Allergy Mild UNKNOWN Verified 01/02/21 18:54 diclofenac AdvReac Mild UNKNOWN Verified 01/02/21 18:54 paroxetine HCl [From Paxil] AdvReac Mild HEADACHE, Verified 01/02/21 18:54 LETHARGY Home Medications: Home Meds Aspirin [Halfprin] 81 mg PO DAILY 06/14/18 [History] Cholecalciferol (Vitamin D3) [Vitamin D3] 5,000 unit PO DAILY 06/14/18 [History] Omeprazole 20 mg PO Q72H 06/14/18 [History] Verapamil [Calan SR] 120 mg PO DAILY 06/14/18 [History] Calcium Carb/Vit D3/Minerals [Calcium 600+D Plus Minerals] 1 each PO DAILY 01/02/21 [History] Docusate Sodium [Colace] 200 mg PO DAILY 01/02/21 [History] Mirtazapine [Remeron] 30 mg PO BEDTIME 01/02/21 [History] OLANZapine [Zyprexa] 5 mg PO BEDTIME 01/02/21 [History] lisinopriL [Lisinopril] 5 mg PO DAILY 01/02/21 [History] Acetaminophen 650 mg PO Q4H PRN 01/03/21 [History] Cyanocobalamin (Vitamin B-12) [Vitamin B-12] 1,000 mcg PO DAILY 01/03/21 [History] Cyclobenzaprine [Flexeril] 5 mg PO Q8H PRN 01/03/21 [History] Ferrous Sulfate 325 mg PO BID 01/03/21 [History] Memantine [Namenda] 5 mg PO BID 01/03/21 [History] Vitamin E 400 unit PO DAILY 01/03/21 [History] traMADol [Ultram] 25 mg PO Q6H PRN 01/03/21 [History] Past Medical History HEENT History: Reports: None Cardiovascular History: Reports: Hypertension Other Cardiovascular History: SUPRAVENTRICULAR PREMATURE BEATS, CHEST PRESSURE Respiratory History: Reports: COPD Gastrointestinal History: Reports: GERD 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: Other OB/BYN History: Musculoskeletal History: Reports: Osteoporosis Neurological History: Reports: Headaches, Chronic, Other (See Below) Other Neuro History: PARESTHESIA OF HAND AND FEET Psychiatric History: Reports: Anxiety, Dementia, Depression - Infectious Disease History Infectious Disease History: Reports: Chicken Pox, Measles, Mumps - Past Surgical History HEENT Surgical History: Reports: None Other HEENT Surgeries/Procedures: bilat cataract GI Surgical History: Reports: Appendectomy, Cholecystectomy, Colonoscopy Female Surgical History: Reports: Hysterectomy, Tubal Ligation Musculoskeletal Surgical History: Reports: ORIF, Shoulder Surgery Social & Family History - Family History Family Medical History: No Pertinent Family History - Tobacco Use Tobacco Use Status *Q: Current Every Day Tobacco User Years of Tobacco use: 40 Packs/Tins Daily: 0.2 - Caffeine Use Caffeine Use: Reports: Coffee - Recreational Drug Use Recreational Drug Use: No - Living Situation & Occupation Living situation: Reports: Extended Care Facility (Lives at [facility]) Occupation: Retired H&P Review of Systems - Review of Systems: Review Of Systems: See Below General: Reports: Fever, Malaise, Weakness. Denies: Decreased Appetite HEENT: Reports: No Symptoms Pulmonary: Reports: Shortness of Breath, Cough Cardiovascular: Reports: No Symptoms Gastrointestinal: Reports: No Symptoms Genitourinary: Reports: Urgency. Denies: Dysuria, Frequency, Hematuria Musculoskeletal: Reports: Shoulder Pain (left), Joint Pain (left elbow) Skin: Reports: No Symptoms Psychiatric: Reports: No Symptoms Neurological: Reports: Confusion (history of dementia) Exam - Exam Exam: See Below - Vital Signs Vital Signs: Last Vital Signs Temp 97.5 F 01/03/21 07:30 Pulse 92 01/03/21 11:05 Resp 20 01/03/21 07:30 BP 112/93 H 01/03/21 10:49 Pulse Ox 94 L 01/03/21 07:30 Weight: 111 lb 2 oz - Exam General: Alert, Oriented (person, place), Cooperative. No: Mild Distress HEENT: PERRLA, Conjunctiva Clear, EOMI, Hearing Intact, Mucosa Moist & [place], Nares Patent Neck: Supple, Trachea Midline. No: Lymphadenopathy Lungs: Clear to Auscultation, Normal Respiratory Effort, Decreased Breath Sounds (bibasilar), Wheezing (rare). No: Crackles Cardiovascular: Regular Rate, Regular Rhythm GI/Abdominal Exam: Normal Bowel Sounds, Soft, Non-Tender, No Distention (Female) Exam: Deferred Rectal (Female) Exam: Deferred Extremities: No Pedal Edema, Normal Capillary Refill. No: Joint Swelling Peripheral Pulses: 2+: Radial (L), Radial (R) Skin: Warm, Dry, Intact Neurological: Cranial Nerves Intact, Normal Speech - Patient Data Lab Results Last 24 hrs: Laboratory Results - last 24 hr 01/02/21 01/02/21 01/02/21 Range/Units 19:08 19:08 19:08 WBC 12.2 H (3.0-10.3) x10-3/uL RBC 3.34 L (3.60-5.20) x10(6)uL Hgb 10.6 L (11.4-15.5) g/dL Hct 32.9 L (34.2-48.2) % MCV 98.6 (76.7-100.5) fL MCH 31.8 (23.9-33.9) pg MCHC 32.3 (31.9-34.8) g/dL RDW 14.1 (12.3-16.5) % Plt Count 334 (151-488) x10(3)uL MPV 7.4 (7.1-12.4) fL Neut % (Auto) 64.4 (30.8-76.2) % Lymph % (Auto) 10.6 L (18.4-52.1) % [place] % (Auto) 12.8 (4.4-15.7) % Eos % (Auto) 11.4 H (0.6-8.1) % Baso % (Auto) 0.8 (0.2-1.5) % Neut # (Auto) 7.9 H (1.5-6.3) x10-3/uL Lymph # (Auto) 1.3 (1.0-4.4) x10-3/uL [place] # (Auto) 1.6 H (0.3-1.0) x10-3/uL Eos # (Auto) 1.4 H (0.0-0.8) x10-3/uL Baso # (Auto) 0.1 (0.0-0.1) x10-3/uL Add Manual Diff Neutrophils % (Manual) (46-82) % Lymphocytes % (Manual) (13-37) % Monocytes % (Manual) (4-12) % D-Dimer, Quantitative (0.0-0.59) mg/LFEU Sodium 140 (135-145) mmol/L Potassium 4.1 (3.5-5.3) mmol/L Chloride 103 (100-110) mmol/L Carbon Dioxide 28 (21-32) mmol/L BUN 16 (7-18) mg/dL Creatinine 0.9 (0.55-1.02) mg/dL Est Cr Clr Drug Dosing 47.21 mL/min Estimated GFR (MDRD) > 60 (>60) BUN/Creatinine Ratio 17.8 (9-20) Glucose 112 (80-116) mg/dL Lactic Acid (0.4-2.0) mmol/L Calcium 8.5 L (8.6-10.2) mg/dL Magnesium 2.0 (1.8-2.5) mg/dL Total Bilirubin 0.3 (0.1-1.3) mg/dL AST 19 (5-25) IU/L ALT 21 (12-36) U/L Alkaline Phosphatase 115 H (56-112) IU/L Troponin I 5.7 (4.0-60.3) pg/mL C-Reactive Protein 7.1 H* (0.5-0.9) mg/dL NT-Pro-B Natriuret Pep 264 H (<=125) pg/mL Total Protein 6.4 (6.0-8.0) g/dL Albumin 3.0 L (3.2-4.6) g/dL Globulin 3.4 g/dL Albumin/Globulin Ratio 0.9 Urine Color (YELLOW) Urine Appearance (CLEAR) Urine pH (5.0-6.5) Ur Specific [place] (1.010-1.025) Urine Protein (NEGATIVE) mg/dL Urine Glucose (UA) (NORMAL) mg/dL Urine Ketones (NEGATIVE) mg/dL Urine Occult Blood (NEGATIVE) Urine Nitrite (NEGATIVE) Urine Bilirubin (NEGATIVE) Urine Urobilinogen (NEGATIVE) mg/dL Ur Leukocyte Esterase (NEGATIVE) Urine RBC (0-5) Urine WBC (0-5) Ur Squamous Epith Cells (NS,R,O) Urine Bacteria (NS) SARS-CoV-2 RNA (TRISHA) (NEGATIVE) 01/02/21 01/02/21 01/02/21 Range/Units 19:08 19:08 19:50 WBC (3.0-10.3) x10-3/uL RBC (3.60-5.20) x10(6)uL Hgb (11.4-15.5) g/dL Hct (34.2-48.2) % MCV (76.7-100.5) fL MCH (23.9-33.9) pg MCHC (31.9-34.8) g/dL RDW (12.3-16.5) % Plt Count (151-488) x10(3)uL MPV (7.1-12.4) fL Neut % (Auto) (30.8-76.2) % Lymph % (Auto) (18.4-52.1) % [place] % (Auto) (4.4-15.7) % Eos % (Auto) (0.6-8.1) % Baso % (Auto) (0.2-1.5) % Neut # (Auto) (1.5-6.3) x10-3/uL Lymph # (Auto) (1.0-4.4) x10-3/uL [place] # (Auto) (0.3-1.0) x10-3/uL Eos # (Auto) (0.0-0.8) x10-3/uL Baso # (Auto) (0.0-0.1) x10-3/uL Add Manual Diff Neutrophils % (Manual) (46-82) % Lymphocytes % (Manual) (13-37) % Monocytes % (Manual) (4-12) % D-Dimer, Quantitative 2.46 H (0.0-0.59) mg/LFEU Sodium (135-145) mmol/L Potassium (3.5-5.3) mmol/L Chloride (100-110) mmol/L Carbon Dioxide (21-32) mmol/L BUN (7-18) mg/dL Creatinine (0.55-1.02) mg/dL Est Cr Clr Drug Dosing mL/min Estimated GFR (MDRD) (>60) BUN/Creatinine Ratio (9-20) Glucose (80-116) mg/dL Lactic Acid 1.0 (0.4-2.0) mmol/L Calcium (8.6-10.2) mg/dL Magnesium (1.8-2.5) mg/dL Total Bilirubin (0.1-1.3) mg/dL AST (5-25) IU/L ALT (12-36) U/L Alkaline Phosphatase (56-112) IU/L Troponin I (4.0-60.3) pg/mL C-Reactive Protein (0.5-0.9) mg/dL NT-Pro-B Natriuret Pep (<=125) pg/mL Total Protein (6.0-8.0) g/dL Albumin (3.2-4.6) g/dL Globulin g/dL Albumin/Globulin Ratio Urine Color Yellow (YELLOW) Urine Appearance Slightly cloudy (CLEAR) Urine pH 7.0 H (5.0-6.5) Ur Specific [place] 1.010 (1.010-1.025) Urine Protein Negative (NEGATIVE) mg/dL Urine Glucose (UA) Normal (NORMAL) mg/dL Urine Ketones Negative (NEGATIVE) mg/dL Urine Occult Blood Negative (NEGATIVE) Urine Nitrite Negative (NEGATIVE) Urine Bilirubin Negative (NEGATIVE) Urine Urobilinogen Normal (NEGATIVE) mg/dL Ur Leukocyte Esterase Small H (NEGATIVE) Urine RBC 0-5 (0-5) Urine WBC 5-10 H (0-5) Ur Squamous Epith Cells Moderate H (NS,R,O) Urine Bacteria Few H (NS) SARS-CoV-2 RNA (TRISHA) (NEGATIVE) 01/02/21 01/03/21 01/03/21 Range/Units 19:55 06:35 06:35 WBC 8.1 (3.0-10.3) x10-3/uL RBC 3.29 L (3.60-5.20) x10(6)uL Hgb 10.5 L (11.4-15.5) g/dL Hct 32.6 L (34.2-48.2) % MCV 99.0 (76.7-100.5) fL MCH 31.9 (23.9-33.9) pg MCHC 32.2 (31.9-34.8) g/dL RDW 14.3 (12.3-16.5) % Plt Count 301 (151-488) x10(3)uL MPV 7.6 (7.1-12.4) fL Neut % (Auto) (30.8-76.2) % Lymph % (Auto) (18.4-52.1) % [place] % (Auto) (4.4-15.7) % Eos % (Auto) (0.6-8.1) % Baso % (Auto) (0.2-1.5) % Neut # (Auto) (1.5-6.3) x10-3/uL Lymph # (Auto) (1.0-4.4) x10-3/uL [place] # (Auto) (0.3-1.0) x10-3/uL Eos # (Auto) (0.0-0.8) x10-3/uL Baso # (Auto) (0.0-0.1) x10-3/uL Add Manual Diff Yes Neutrophils % (Manual) 93 H (46-82) % Lymphocytes % (Manual) 5 L (13-37) % Monocytes % (Manual) 2 L (4-12) % D-Dimer, Quantitative (0.0-0.59) mg/LFEU Sodium 140 (135-145) mmol/L Potassium 3.6 (3.5-5.3) mmol/L Chloride 107 (100-110) mmol/L Carbon Dioxide 23 (21-32) mmol/L BUN 14 (7-18) mg/dL Creatinine 0.9 (0.55-1.02) mg/dL Est Cr Clr Drug Dosing 45.62 mL/min Estimated GFR (MDRD) > 60 (>60) BUN/Creatinine Ratio 15.6 (9-20) Glucose 199 H D (80-116) mg/dL Lactic Acid (0.4-2.0) mmol/L Calcium 8.1 L (8.6-10.2) mg/dL Magnesium (1.8-2.5) mg/dL Total Bilirubin (0.1-1.3) mg/dL AST (5-25) IU/L ALT (12-36) U/L Alkaline Phosphatase (56-112) IU/L Troponin I (4.0-60.3) pg/mL C-Reactive Protein (0.5-0.9) mg/dL NT-Pro-B Natriuret Pep (<=125) pg/mL Total Protein (6.0-8.0) g/dL Albumin (3.2-4.6) g/dL Globulin g/dL Albumin/Globulin Ratio Urine Color (YELLOW) Urine Appearance (CLEAR) Urine pH (5.0-6.5) Ur Specific [place] (1.010-1.025) Urine Protein (NEGATIVE) mg/dL Urine Glucose (UA) (NORMAL) mg/dL Urine Ketones (NEGATIVE) mg/dL Urine Occult Blood (NEGATIVE) Urine Nitrite (NEGATIVE) Urine Bilirubin (NEGATIVE) Urine Urobilinogen (NEGATIVE) mg/dL Ur Leukocyte Esterase (NEGATIVE) Urine RBC (0-5) Urine WBC (0-5) Ur Squamous Epith Cells (NS,R,O) Urine Bacteria (NS) SARS-CoV-2 RNA (TRISHA) Negative (NEGATIVE) Result Diagrams: 01/03/21 06:35 01/03/21 06:35 Sepsis Event Note - Evaluation Sepsis Screening Result: No Definite Risk - Focused Exam Vital Signs: Vital Signs Temp Pulse Pulse Resp BP BP Pulse Ox 01/03/21 11:05 92 01/03/21 10:52 89 01/03/21 10:49 89 112/93 H 01/03/21 07:30 97.5 F 89 20 112/93 H 94 L 01/03/21 06:02 89 01/03/21 04:00 97.6 F 89 16 145/81 H 93 L 01/03/21 00:00 98.2 F 88 16 132/78 93 L *Q Meaningful Use (ADM) - VTE Risk Assess *Q Each Risk Factor Represents 1 Point: Abnormal Pulmonary Function (COPD) Total Score 1 Point Risk Factors: 1 Each Risk Factor Represents 2 Points: Age 60 - 74 Years Total Score 2 Point Risk Factors: 2 Each Risk Factor Represents 3 Points: None Total Score 3 Point Risk Factors: 0 Each Risk Factor Represents 5 Points: None Total Score 5 Point Risk Factors: 0 Venous Thromboembolism Risk Factor Score *Q: 3 - Problem List (1) COPD with acute exacerbation SNOMED Code(s): 415611919 ICD Code: J44.1 - CHRONIC OBSTRUCTIVE PULMONARY DISEASE W (ACUTE) EXACERBATIO N Status: Acute Current Visit: Yes (2) Febrile illness, acute SNOMED Code(s): 657119098 ICD Code: R50.9 - FEVER, UNSPECIFIED Status: Acute Current Visit: Yes (3) Olecranon fracture SNOMED Code(s): 777385020 ICD Code: S52.023A - DISP FX OF OLECRAN PRO W/O INTARTIC EXTN UNSP ULNA, INIT Status: Chronic Current Visit: No Onset Date: ~11/2020 Qualifiers: Encounter type: initial encounter Fracture type: closed Laterality: left Qualified Code(s): S52.022A - Displaced fracture of olecranon process without intraarticular extension of left ulna, initial encounter for closed fracture (4) Dementia SNOMED Code(s): 22665272 ICD Code: F03.90 - UNSPECIFIED DEMENTIA WITHOUT BEHAVIORAL DISTURBANCE Status: Chronic Current Visit: Yes Qualifiers: Dementia type: unspecified type Dementia behavioral disturbance: with behavioral disturbance Qualified Code(s): F03.91 - Unspecified dementia with behavioral disturbance (5) COPD (chronic obstructive pulmonary disease) SNOMED Code(s): 57993445 ICD Code: J44.9 - CHRONIC OBSTRUCTIVE PULMONARY DISEASE, UNSPECIFIED Status: Chronic Current Visit: Yes Onset Date: Problem List Initiated/Reviewed/Updated: Yes Orders Last 24hrs: Active Orders 24 hr Category Date Time Status Admission Status [Patient Status] [ADT] Routine ADT 01/02/21 22:32 Active Communication Order [RC] Q1HWA Care 01/03/21 11:23 Active Height and Weight [RC] 06 Care 01/02/21 22:36 Active Oxygen Therapy [RC] PRN Care 01/02/21 22:36 Active RT Aerosol Therapy [RC] ASDIRECTED Care 01/02/21 22:40 Active Up With Assistance [RC] ASDIRECTED Care 01/02/21 22:36 Active VTE/DVT Education [RC] Per Unit Routine Care 01/02/21 22:36 Active Vital Signs [RC] 00,04,08,12,16,20 Care 01/02/21 22:36 Active Regular Diet [DIET] Diet 01/02/21 Dinner Ordered Ang Chest [CT] Stat Exams 01/02/21 20:25 Taken Chest 1V Frontal [CR] Stat Exams 01/02/21 18:54 Stop Req CULTURE BLOOD [BC] Urgent Lab 01/02/21 19:08 Received CULTURE BLOOD [BC] Urgent Lab 01/02/21 19:15 Received CULTURE URINE [RM] Routine Lab 01/02/21 16:50 Received Acetaminophen [TylenoL] Med 01/02/21 22:36 Active 650 mg PO Q4H PRN Albuterol/Ipratropium [DuoNeb 3.0-0.5 MG/3 ML] Med 01/02/21 23:00 Active 3 ml NEB QIDRT Azithromycin [Zithromax] 500 mg Med 01/02/21 22:45 Active Sodium Chloride 0.9% [Normal Saline (AdvBag)] 250 ml IV DAILY@2100 Enoxaparin [Lovenox] Med 01/02/21 22:45 Active 40 mg SUBCUT BEDTIME Mirtazapine [Remeron] Med 01/03/21 21:00 Active 30 mg PO BEDTIME Nicotine [Habitrol] Med 01/03/21 21:00 Active 14 mg TRDERM BEDTIME OLANZapine [ZyPREXA] Med 01/03/21 21:00 Active 5 mg PO BEDTIME Ondansetron [Zofran ODT] Med 01/02/21 22:36 Active 4 mg PO Q6H PRN Ondansetron [Zofran] Med 01/02/21 22:36 Active 4 mg IV Q6H PRN Pantoprazole [ProTONIX IV] Med 01/02/21 22:45 Active 40 mg IVPUSH BID Sodium Chloride 0.9% [Normal Saline] 1,000 ml Med 01/02/21 19:45 Active IV ASDIRECTED Sodium Chloride 0.9% [Saline Flush] Med 01/02/21 18:54 Active 10 ml FLUSH ASDIRECTED PRN Trolamine Salicylate/Aloe Vera [Aspercreme 10%] Med 01/03/21 11:37 Active 0 gm TOP QID PRN Verapamil [Calan SR] Med 01/03/21 10:30 Active 120 mg PO DAILY cefTRIAXone [Rocephin] Med 01/02/21 22:45 Active 1 gm IVPUSH DAILY@2100 lisinopriL [Prinivil] Med 01/03/21 10:30 Active 5 mg PO DAILY predniSONE Med 01/04/21 08:00 Active 40 mg PO WITHBREAKFAST Blood Culture x2 Reflex Set [OM.PC] Urgent Oth 01/02/21 18:54 Ordered Peripheral IV Insertion Adult [OM.PC] Routine Oth 01/02/21 18:54 Ordered Resuscitation Status Routine Resus Stat 01/02/21 22:36 Ordered EKG 12 Lead [EK] Routine Ther 01/02/21 18:54 Ordered Medication Orders Acetaminophen (Acetaminophen 325 Mg Tab) 650 mg PO Q4H PRN PRN Reason: Pain (Mild 1-3)/fever Last Admin: 01/03/21 11:12 Dose: 650 mg Documented by: Admin: 01/03/21 07:23 Dose: 650 mg Documented by: Admin: 01/03/21 00:01 Dose: 650 mg Documented by: CASSANDRA Albuterol/Ipratropium (Albuterol/Ipratropium 3.0-0.5 Mg/3 Ml Neb Soln) 3 ml NEB QIDRT [facility] Last Admin: 01/03/21 10:52 Dose: 3 ml Documented by: Admin: 01/03/21 06:01 Dose: 3 ml Documented by: Admin: 01/02/21 22:59 Dose: 3 ml Documented by: SKY Ceftriaxone Sodium (Ceftriaxone 1 Gm Vial) 1 gm IVPUSH DAILY@2100 [facility] Last Admin: 01/02/21 23:41 Dose: 1 gm Documented by: CASSANDRA Enoxaparin Sodium (Enoxaparin 40 Mg/0.4 Ml Syringe) 40 mg SUBCUT BEDTIME [facility] Last Admin: 01/02/21 23:37 Dose: 40 mg Documented by: CASSANDRA Sodium Chloride (Normal Saline) 1,000 mls @ 100 mls/hr IV ASDIRECTED [facility] Last Admin: 01/03/21 06:59 Dose: 100 mls/hr Documented by: Infusion: 01/03/21 06:27 Dose: 100 mls/hr Documented by: Admin: 01/02/21 20:27 Dose: 100 mls/hr Documented by: SKY Azithromycin 500 mg/ Sodium (Chloride) 250 mls @ 250 mls/hr IV DAILY@2100 [facility] Last Admin: 01/02/21 23:59 Dose: 250 mls/hr Documented by: CASSANDRA Lisinopril (Lisinopril 5 Mg Tab *Ptom) 5 mg PO DAILY [facility] Last Admin: 01/03/21 10:49 Dose: 5 mg Documented by: HECTOR Mirtazapine (Mirtazapine 30 Mg Tab) 30 mg PO BEDTIME [facility] Nicotine (Nicotine 14 Mg/24 Hr Patch) 14 mg TRDERM BEDTIME [facility] Olanzapine (Olanzapine 5 Mg Tab) 5 mg PO BEDTIME [facility] Ondansetron HCl (Ondansetron 4 Mg Tab.Dis) 4 mg PO Q6H PRN PRN Reason: nausea, able to take PO Ondansetron HCl (Ondansetron 4 Mg/2 Ml Sdv) 4 mg IV Q6H PRN PRN Reason: Nausea/Vomiting Pantoprazole Sodium (Pantoprazole 40 Mg Vial) 40 mg IVPUSH BID [facility] Last Admin: 01/03/21 09:01 Dose: 40 mg Documented by: Admin: 01/02/21 23:37 Dose: 40 mg Documented by: CASSANDRA Prednisone (Prednisone 20 Mg Tab) 40 mg PO WITHBREAKFAST [facility] Stop: 01/07/21 08:01 Sodium Chloride (Sodium Chloride 0.9% 10 Ml Syringe) 10 ml FLUSH ASDIRECTED PRN PRN Reason: Keep Vein Open Last Admin: 01/02/21 19:50 Dose: 10 ml Documented by: SKY Trolamine Salicylate (Trolamine Salicylate/Aloe Vera 10% Crm 85 Gm Tube) 0 gm TOP QID PRN PRN Reason: Pain (moderate 4-6) Verapamil HCl (Verapamil 120 Mg Tab.Er *Ptom) 120 mg PO DAILY [facility] Last Admin: 01/03/21 10:49 Dose: 120 mg Documented by: HECTOR Assessment/Plan Comment:: 1. Admit for observation for COPD exacerbation, fever. UTI ruled out. 2. COPD: Received Rocephin & Azithromycin last night, SoluMedrol 40 mg last evening and this morning. Patient is stable tolerating her diet. WBC normal & BMP normal today. Would like to go home as she is feeling better. She does have dementia with behaviors, would be appropriate to discharge back to her home environment on oral medications. Will start tonight Cefdinir 300 mg bid 9am/9pm, Azithromycin at 6pm with evening meal. Prednisone 40 mg daily x 3 days to start tomorrow. Will send her home on Anoro Ellipta inhaler for her COPD, 1 puff daily. Also will send home with flutter valve to do 10 times every hour she is awake while she is sick, then daily for maintenance. 3. s/p ORIF left olecranon fracture: Aspercreme qid as needed to affected area. 4. Diet: regular. 5. Activity: as tolerated. 6. DVT prophylaxis: Lovenox 40 mg sq at bedtime. 7. CODE STATUS: DNR/DNI. 8. Discharge: this note will also serve as her discharge summary. She will go home this afternoon to [facility]. Cefdinir 300 mg bid x 7 days. Azithromycin 500 mg daily@1800. Prednisone 40 mg daily to start 3/23 x 3 days. Anoro 1 puff daily, all new scripts sent to [facility]. Follow up with Deja Johnson end of the week/beginning of next week. Orders for [facility] with PT/OT services. - Mortality Measure Prognosis:: Good
[2021-01-03] MEDS ORDERED: Mirtazapine 30 MG Tab PO SCH (21:00)
[2021-01-03] MEDS ORDERED: OLANZapine 5 MG Tab PO SCH (21:00)
[2021-01-03] MEDS ORDERED: Nicotine 14 MG/24 Hr Patch TRDERM SCH (21:00)
[2021-01-04] MEDS ORDERED: predniSONE 20 MG Tab PO SCH (08:00)
== END 2021-01-03 13:10 | disposition home health service (06) ==
LOC: FB.ED 18:42 → FB.MS 22:58 → UNDOADMOB 22:58
PROVIDERS: ADMIT Emergency Medicine; ATTEND Family Medicine
DX: J44.1 Chronic obstructive pulmonary disease with (acute) exacerbation (principal); F03.91 Unspecified dementia, unspecified severity, with behavioral disturbance; F17.210 Nicotine dependence, cigarettes, uncomplicated; Z20.822 Contact with and (suspected) exposure to COVID-19; Z88.8 Allergy status to other drugs, medicaments and biological substances; Z79.82 Long term (current) use of aspirin; Z79.899 Other long term (current) drug therapy; Z98.890 Other specified postprocedural states
CPT/HCPCS: 36415; 71275; 80048; 80053; 81001; 83605; 83735; 83880; 84484; 85025; 85379; 86140; 87040; 87086; 93005; 94640; 96365; 96372; 96375; 96376; 99285; A9270; C9113; G0378; J0456; J0696; J1650; J2920; J7030; J7040; J7050; Q9967; U0002; J7620-GY

== ENCOUNTER 2024-01-16 15:58 | Emergency (ER) | payer MEDICARE ==
[2024-01-16] MEDS ORDERED: Sodium Chloride 0.9% 10 ML Syringe FLUSH PRN (16:33)
[2024-01-16 17:10] LABS: BASOPHILS ABSOLUTE AUTO 0.1 x10-3/uL (0.0-0.1); BASOPHILS PERCENT AUTO 1.1 % (0.2-1.5); EOSINOPHILS ABSOLUTE AUTO 0.2 x10-3/uL (0.0-0.8); EOSINOPHILS PERCENT AUTO 2.1 % (0.6-8.1); HEMOGLOBIN 11.5 g/dL (11.4-15.5); LYMPHOCYTES PERCENT AUTO 21.5 % (18.4-52.1); MEAN CORPUSCULAR HEMOGLOBIN 30.2 pg (23.9-33.9); MEAN CORPUSCULAR HGB CONC 32.8 g/dL (31.9-34.8); MEAN CORPUSCULAR VOLUME 91.9 fL (76.7-100.5); MEAN PLATELET VOLUME 7.7 fL (7.1-12.4); MONOCYTES ABSOLUTE AUTO 1.2 x10-3/uL (0.3-1.0); MONOCYTES PERCENT AUTO 12.6 % (4.4-15.7); NEUTROPHILS PERCENT AUTO 62.7 % (30.8-76.2); PLATELET COUNT,PLT 265 x10(3)uL (151-488); RED BLOOD CELL COUNT 3.81 x10(6)uL (3.60-5.20); RED CELL DISTRIBUTION WIDTH 14.2 % (12.3-16.5); WHITE BLOOD CELL COUNT,WBC 9.5 x10-3/uL (3.0-10.3)
[2024-01-16 17:16] LABS: BLOOD UREA NITROGEN,BUN 12 mg/dL (7-18); BUN/CREATININE RATIO 13.3 (9-20); CALCIUM 9.3 mg/dL (8.6-10.2); CARBON DIOXIDE,CO2 29 mmol/L (21-32); CHLORIDE,CL 104 mmol/L (100-110); CREATININE 0.9 mg/dL (0.55-1.02); EST CRCL DRUG DOSING (CG) 47.12 mL/min; ESTIMATED GFR 67 mL/min (>60); GLUCOSE RANDOM 97 mg/dL (80-116); POTASSIUM,K 3.5 mmol/L (3.5-5.3); SODIUM,NA 142 mmol/L (135-145)
[2024-01-16 17:23] LABS: A/G RATIO 0.9; ALANINE AMINOTRANSFERASE,ALT 63 U/L (12-36); ALKALINE PHOSPHATASE 103 IU/L (56-112); ASPARTATE AMNIOTRANSFERASE,AST 81 IU/L (5-25); BILIRUBIN TOTAL 0.3 mg/dL (0.1-1.3); MAGNESIUM 2.3 mg/dL (1.8-2.5); PROTEIN TOTAL,TP 6.5 g/dL (6.0-8.0)
[2024-01-16] MEDS: Acetaminophen 500 MG Tab PO ONE (19:54)
== END 2024-01-16 20:45 | disposition home or self-care (01) ==
LOC: FB.ED 15:58
DX: R07.89 Other chest pain (principal); Z90.49 Acquired absence of other specified parts of digestive tract; J44.9 Chronic obstructive pulmonary disease, unspecified; K21.9 Gastro-esophageal reflux disease without esophagitis; Z79.82 Long term (current) use of aspirin; Z79.899 Other long term (current) drug therapy; Z88.8 Allergy status to other drugs, medicaments and biological substances
CPT/HCPCS: 36415; 71045; 80053; 83735; 84484; 85025; 85379; 86140; 93005; 93010; 99283; 99285; A9270